=== PATIENT | male | born 1975 ===

== ENCOUNTER → 2020-06-23 | Outpatient (CLI) | payer BC ==
--- NOTE | 2020-06-23 16:20 | KCIC ---
Ultrasound of the soft tissues of the left neck without comparison for cervical lymphadenopathy, hist ory of cancer. Technique an findings: Real-time grayscale and color Doppler evaluation of the soft tissues the neck is performed. Cine images of the contralateral right neck were also obtained. In the left neck in the area of interest, there is a striated crescentic shaped hypoechoic abnormality measuring 1.5 x 0.7 c m, which appears to represent a swollen lymph node. There is suggestion of an intact fatty hilum, whi ch is reassuring but not definitive for benignity. Several normal size and morphologically normal lym ph nodes are seen in the right neck with no pathologic adenopathy seen. IMPRESSION: 1. Prominent lymph node in the left neck in the area of interest, with intact fatty hilum but suggest ion of parenchymal swelling. This may be benign and reactive, however given the patient's high risk h istory, I recommend follow-up ultrasound in 6-12 weeks to ensure stability. Electronically signed by: Stew Navarro MD (06/23/2020 4:18 PM) [id number]
== END ==
LOC: KCIC US 15:14
PROVIDERS: ATTEND Nurse Practitioner Gerontology
DX: R59.0 Localized enlarged lymph nodes (principal)
CPT/HCPCS: 76536

== ENCOUNTER → 2020-10-20 | Outpatient (CLI) | payer BC ==
--- NOTE | 2020-10-20 17:18 | KCIC ---
US HEAD/NECK SOFT TISSUE History:Reason: CERVICAL LYMPHADENOPATHY / Spl. Instructions: / History: Comparison: June 23, 2020 Technique: Sonographic examination of the neck soft tissues Findings: Mildly prominent right deep cervical chain lymph node measures 2.4 x 0.6 cm, similar compared to prio r. Prominent rounded right sided lymph nodes with thickened cortex measures 1.0 x 1.0 cm and 1.1 x 0. 7 cm, similar compared to prior. Left sided the rounded small lymph node measures 0.8 x 0.9 cm. Impression: 1. Rounded bilateral deep cervical chain lymph nodes, overall similar compared to prior. Recommend c ontinued follow-up and if persistent clinical concern, CT can further evaluate as well as biopsy if i ndicated. Electronically signed by: Adolph Burrell DO (10/20/2020 5:16 PM) [id number]
== END ==
LOC: KCIC US 14:58
PROVIDERS: ATTEND Family Medicine
DX: R59.0 Localized enlarged lymph nodes (principal)
CPT/HCPCS: 76536